=== PATIENT | female | born 1980 | race Caucasian/White ===

== ENCOUNTER 2022-10-21 20:39 | Emergency (ER) | payer SELFPAY ==
[~2022-10-21] VITALS: Ht 167.6 cm; Wt 70.0 kg
[2022-10-21 20:59] VITALS: BP 109/75
[2022-10-21] MEDS ORDERED: CYCLOBENZAPRINE 10MG TABLET PO ONE (22:30)
[2022-10-21] MEDS ORDERED: ACETAMINOPHEN 325MG TABLET PO ONE (22:30)
[2022-10-21] MEDS ORDERED: CYCL10TA21 MT (23:51)
[2022-10-21] MEDS ORDERED: NAPR-681 MT (23:51)
== END 2022-10-22 00:31 | disposition home or self-care (01) ==
LOC: ER 20:39
DX: S93.491A Sprain of other ligament of right ankle, initial encounter (principal); S00.83XA Contusion of other part of head, initial encounter; M25.531 Pain in right wrist; M54.59 Other low back pain; W11.XXXA Fall on and from ladder, initial encounter; Y93.89 Activity, other specified; Y92.89 Other specified places as the place of occurrence of the external cause
CPT/HCPCS: 29515; 73110; 73610; 99284

== ENCOUNTER 2022-11-06 05:30 | Emergency (ER) | payer MEDICAID ==
[~2022-11-06] VITALS: Ht 165.1 cm; Wt 80.9 kg
[~2022-11-06 05:30] MED LIST: CYCL10TA21 MT; NAPR-681 MT
[2022-11-06] MEDS ORDERED: KETOROLAC 30MG/ML VIAL IV STA (06:43)
[2022-11-06] MEDS ORDERED: SODIUM CHLORIDE 0.9% 1,000 ML IV ONE (06:45)
[2022-11-06] MEDS ORDERED: METOCLOPRAMIDE HCL 10MG/2ML VIAL IV ONE (06:45)
[2022-11-06 08:28] VITALS: BP 113/73
[2022-11-06] MEDS ORDERED: METOCLOPRAMIDE HCL 10MG/2ML VIAL IV SCH (08:30)
[2022-11-06] MEDS ORDERED: KETOROLAC 30MG/ML VIAL IV SCH (08:30)
[2022-11-06] MEDS ORDERED: IBUP-2028 PO (08:59)
[2022-11-06] MEDS ORDERED: METO-293 PO (08:59)
== END 2022-11-06 09:53 | disposition home or self-care (01) ==
LOC: ER 05:30
DX: R51.9 Headache, unspecified (principal)
CPT/HCPCS: 81025; 96361; 96374; 96375; 99284; J1885; J2765; J7030; Z7610